=== PATIENT | male | born 1995 ===

== ENCOUNTER 2016-08-04 13:20 | Emergency (ER) | payer BC ==
[2016-08-04 13:46] VITALS: BP 132/85
[2016-08-04 14:26] LABS: CHLORIDE,CL 102 mEq/L (98-106); SODIUM,NA 138 mEq/L (136-145)
--- NOTE | 2016-08-04 14:36 | EDM.PDOC ---
ED HPI GI/ABDOMINAL - General Chief Complaint: Abdominal Pain Stated Complaint: abd pain Time Seen by Provider: 08/04/16 14:03 Source of Information: Reports: Patient History Limitations: Reports: No limitations - History of Present Illness INITIAL COMMENTS - FREE TEXT/NARRATIVE: Patient presents to ER with complaints of left flank and abdominal discomfort. States around noon today developed intense pain/deep ache in the kidney area. Got crampy, vomited. The pain has now resolved. Has never experienced pain like this before. He has not had a fever. No further nausea or vomiting. Denies cramping. No dysuria. No noted blood in the urine. He has not experienced diarrhea or constipation. Symptom Onset Date: 08/04/16 Timing/Duration: Reports: Hour(s): Location: flank Quality: Reports: ache Severity: moderate Context: Denies: bad/questionable food, recent surgery, recent trauma Associated Symptoms: Reports: nausea/vomiting. Denies: chest pain, back pain, constipation, diarrhea, fever/chills, loss of appetite - Related Data Allergies/ADRs: Allergies Allergy/AdvReac Type Severity Reaction Status Date / Time No Known Allergies Allergy Verified 08/04/16 13:46 Home Meds: Home Meds . [No Known Home Meds] 08/04/16 [History] Past Medical History - Past Health History Medical/Surgical History: Denies Medical/Surgical History Social & Family History - Tobacco Use Smoking Status *Q: Never Smoker - Caffeine Use Caffeine Use: Reports: Soda - Recreational Drug Use Recreational Drug Use: No ED ROS GENERAL - Review of Systems Review Of Systems: See Below Constitutional: Denies: fever, chills, malaise, weakness, decreased appetite HEENT: Reports: No symptoms Respiratory: Reports: No Symptoms Cardiovascular: Reports: No symptoms Endocrine: Reports: no symptoms GI/Abdominal: Reports: Abdominal pain, Nausea, Vomiting. Denies: Constipation, Diarrhea : Reports: flank pain. Denies: dysuria, frequency, hematuria Musculoskeletal: Reports: no symptoms Skin: Reports: no symptoms Neurological: Reports: No Symptoms Psychiatric: Reports: No symptoms ED EXAM, GI/ABD - Physical Exam Exam: See Below Exam Limited By: No limitations General Appearance: alert, WD/WN, no apparent distress Eyes: bilateral: normal appearance Ears: normal external exam, normal TMs Nose: normal inspection, no blood Throat/Mouth: Normal inspection, Normal oropharynx Head: normocephalic Respiratory/Chest: no respiratory distress, lungs clear, normal breath sounds Cardiovascular: regular rate, rhythm GI/Abdominal: normal bowel sounds, soft, non tender Neurological: alert, oriented Psychiatric: normal affect, normal mood Skin Exam: Warm, Dry Course - Vital Signs Last Recorded V/S: Last Vital Signs Temp 98.1 F 08/04/16 13:44 Pulse 72 08/04/16 13:44 Resp 16 08/04/16 13:44 BP 132/85 08/04/16 13:44 Pulse Ox 96 08/04/16 13:44 - Orders/Labs/Meds Orders: Active Orders 24 hr Category Date Time Status Abdomen 2V AP Flat Upright [CR] Stat Exams 08/04/16 13:51 Taken Abdomen Pelvis wo Cont [CT] Stat Exams 08/04/16 14:14 Taken Labs: Laboratory Tests 08/04/16 08/04/16 08/04/16 Range/Units 13:51 14:05 14:05 WBC 13.7 H (5.0-10.0) 10^3/uL RBC 4.86 (4.50-6.00) 10^6/uL Hgb 14.5 (14.0-18.0) g/dL Hct 41.7 (40.0-54.0) % MCV 85.8 (82.0-94.0) fL MCH 29.8 (27.0-32.0) pg MCHC 34.8 (33.0-38.0) g/dL RDW Coeff of Kat 12.3 (11.0-15.0) % Plt Count 267 (150-400) 10^3/uL Neut % (Auto) 82.9 (35-85) % Lymph % (Auto) 11.1 (10-55) % [place] % (Auto) 4.4 (0-16) % Eos % (Auto) 1.3 (0-5) % Baso % (Auto) 0.3 (0-3) % Neut # 11.39 H (1.80-7.00) 10^3/uL Lymph # 1.52 (1.00-4.80) 10^3/uL [place] # 0.61 (0.00-0.80) 10^3/uL Eos # 0.18 (0.00-0.45) 10^3/uL Baso # 0.04 10^3/uL Sodium 138 (136-145) mEq/L Potassium 4.1 (3.5-5.0) mEq/L Chloride 102 (98-106) mEq/L Carbon Dioxide 29 (21-32) mmol/L BUN 12 (7-18) mg/dL Creatinine 1.1 (0.7-1.3) mg/dL Est Cr Clr Drug Dosing 91.63 mL/min Estimated GFR (MDRD) > 60 (>=60) mL/min Glucose 101 H (75-99) mg/dL Calcium 9.2 (8.4-10.1) mg/dL Total Bilirubin 0.5 (0.0-1.0) mg/dL AST 18 (15-37) U/L ALT 46 (12-78) U/L Alkaline Phosphatase 63 (46-116) U/L C-Reactive Protein 1.0 H (0.2-0.8) mg/dL Total Protein 8.5 H (6.4-8.2) g/dL Albumin 4.0 (3.4-5.0) g/dL Urine Color Yellow (YELLOW) Urine Appearance Clear (CLEAR) Urine pH 5.5 (4.5-8.0) Ur Specific [place] 1.023 H (1.003-1.020) Urine Protein 30 H (NEGATIVE) mg/dL Urine Glucose (UA) Negative (NEGATIVE) mg/dL Urine Ketones Negative (NEGATIVE) mg/dL Urine Occult Blood Large H (NEGATIVE) Urine Nitrite Negative (NEGATIVE) Urine Bilirubin Negative (NEGATIVE) Urine Urobilinogen 0.2 (0.2-1.0) EU/dL Ur Leukocyte Esterase Negative (NEGATIVE) Urine RBC >100 H (0-5) /HPF Urine WBC Not seen (0-5) /HPF Urine Mucus Few H (NOT SEEN) /HPF - Re-Assessments/Exams Free Text/Narrative Re-Assessment/Exam: 08/04/16-Labs reviewed. Urine positive for blood. Ordered CT to rule out stone 142-CT scan done. Stone noted. Patient informed of results. Departure - Departure Time of Disposition: 14:34 Disposition: Home, Self-Care 01 Condition: good Clinical Impression: Nephrolithiasis Referrals: PCP,None [Primary Care Provider] - Forms: ED Department Discharge Additional Instructions: 1. Push lots of fluids 2. Strain urine 3. If collect stone, bring to [facility] clinic or here to [facility] for analysis. 4. Hydrocodone as needed for pain 5. Follow up in 5-7 days if have ongoing pain. - My Orders Last 24 Hours: My Active Orders 08/04/16 13:51 Abdomen 2V AP Flat Upright [CR] Stat 08/04/16 14:14 Abdomen Pelvis wo Cont [CT] Stat - Assessment/Plan Last 24 Hours: My Active Orders 08/04/16 13:51 Abdomen 2V AP Flat Upright [CR] Stat 08/04/16 14:14 Abdomen Pelvis wo Cont [CT] Stat
== END 2016-08-04 14:48 | disposition home or self-care (01) ==
LOC: CC.ED 13:20
DX: N20.2 Calculus of kidney with calculus of ureter (principal)
CPT/HCPCS: 36415; 74020; 74176; 80053; 81001; 85025; 86140; 99284

== ENCOUNTER 2020-02-16 11:15 | Emergency (ER) | payer BC ==
[2020-02-16 11:53] LABS: CHLORIDE,CL 104 mEq/L (98-106); SODIUM,NA 139 mEq/L (136-145)
--- NOTE | 2020-02-16 11:54 | EDM.PDOC ---
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 Numbness to the left arm that have both now resolved. Pain is not reproducible at this time. He felt "A little" SOB but no nausea or lightheadedness. No edema. Never have pain like this in the past. 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 [No Known Home Meds] 08/04/16 [History] Past Medical History - Past Health History Medical/Surgical History: Denies Medical/Surgical History Cardiovascular History: Reports: None Genitourinary History: Reports: Renal Calculus - Past Surgical History HEENT Surgical History: Reports: None Cardiovascular Surgical History: Reports: None Male Surgical History: Reports: Renal Calculus Social & Family History - Family History Family Medical History: Noncontributory - Tobacco Use Smoking Status *Q: Never Smoker Second Hand Smoke Exposure: No - Caffeine Use Caffeine Use: Reports: Soda - Recreational Drug Use Recreational Drug Use: No ED ROS GENERAL - Review of Systems Review Of Systems: See Below Constitutional: Denies: Fever, Chills HEENT: Reports: No Symptoms Respiratory: Reports: Other (see HPI) Cardiovascular: Reports: Chest Pain. Denies: Edema, Lightheadedness GI/Abdominal: Denies: Constipation, Diarrhea Musculoskeletal: Reports: No Symptoms Skin: Reports: No Symptoms Neurological: Reports: No Symptoms ED EXAM, GENERAL - Physical Exam Exam: See Below Exam Limited By: No Limitations General Appearance: Alert, WD/WN, No Apparent Distress Ears: Normal External Exam, Normal Canal, Normal TMs Nose: Normal Inspection Throat/Mouth: Normal Inspection, Normal Oropharynx Head: Atraumatic, Normocephalic Neck: Normal Inspection, Supple, Non-Tender, Full Range of Motion Respiratory/Chest: No Respiratory Distress, Lungs Clear, Normal Breath Sounds Cardiovascular: Regular Rate, Rhythm, No Edema GI/Abdominal: Soft, Non-Tender, No Organomegaly Back Exam: Normal Inspection Extremities: No Pedal Edema, Normal Capillary Refill Neurological: Alert, Oriented, CN II-XII Intact, Normal Cognition Skin Exam: Warm, Dry, Intact Course - Orders/Labs/Meds Orders: Active Orders 24 hr Category Date Time Status COMPREHENSIVE METABOLIC PN,CMP [CHEM] Stat Lab 02/16/20 11:21 Ordered MAGNESIUM [CHEM] Stat Lab 02/16/20 11:21 Ordered TROPONIN I [CHEM] Stat Lab 02/16/20 11:21 Ordered Labs: Laboratory Tests 02/16/20 Range/Units 11:21 WBC 8.2 (5.0-10.0) 10^3/uL RBC 5.30 (4.50-6.00) 10^6/uL Hgb 15.7 (14.0-18.0) g/dL Hct 45.6 (40.0-54.0) % MCV 86.0 (82.0-94.0) fL MCH 29.6 (27.0-32.0) pg MCHC 34.4 (33.0-38.0) g/dL RDW Coeff of Kat 12.8 (11.0-15.0) % Plt Count 272 (150-400) 10^3/uL Neut % (Auto) 61.3 (35-85) % Lymph % (Auto) 27.9 (10-55) % [place] % (Auto) 6.4 (0-16) % Eos % (Auto) 3.9 (0-5) % Baso % (Auto) 0.5 (0-3) % Neut # (Auto) 5.00 (1.80-7.00) 10^3/uL Lymph # (Auto) 2.27 (1.00-4.80) 10^3/uL [place] # (Auto) 0.52 (0.00-0.80) 10^3/uL Eos # (Auto) 0.32 (0.00-0.45) 10^3/uL Baso # (Auto) 0.04 10^3/uL - Re-Assessments/Exams Free Text/Narrative Re-Assessment/Exam: 02/16/20 12:05 Discussed normal lab results with pt. Departure - Departure Time of Disposition: 12:06 Disposition: Home, Self-Care 01 Condition: Good Clinical Impression: Atypical chest pain Additional Instructions: Advil as needed If pain reoccurs or if the numbness or tingling in arm reoccurs then would need to recheck - Problem List & Annotations (1) Atypical chest pain SNOMED Code(s): 285471350 Code(s): R07.89 - OTHER CHEST PAIN Status: Acute - Problem List Review Problem List Initiated/Reviewed/Updated: Yes - My Orders Last 24 Hours: My Active Orders 02/16/20 11:21 COMPREHENSIVE METABOLIC PN,CMP [CHEM] Stat MAGNESIUM [CHEM] Stat TROPONIN I [CHEM] Stat - Assessment/Plan Last 24 Hours: My Active Orders 02/16/20 11:21 COMPREHENSIVE METABOLIC PN,CMP [CHEM] Stat MAGNESIUM [CHEM] Stat TROPONIN I [CHEM] Stat
[2020-02-16 12:08] VITALS: BP 128/84; PULSE 82
== END 2020-02-16 12:10 | disposition home or self-care (01) ==
LOC: CC.ED 11:15
DX: R07.89 Other chest pain (principal); R06.02 Shortness of breath
CPT/HCPCS: 36415; 80053; 83735; 84484; 85025; 93005; 99285-25